=== PATIENT | female | born 1965 | race Two or more races ===

== ENCOUNTER 2019-05-09 12:08 | Inpatient (IN) | payer OTHER ==
[~2019-05-09] VITALS: Ht 154.9 cm; Wt 70.4 kg
[~2019-05-09 12:08] MED LIST: INTE0.3I2 SC; LEVO125T7 PO; OMEP20CA74 PO
[2019-05-09] MEDS ORDERED: SODIUM CHLORIDE 0.9% 1,000 ML IVB ONE (12:50)
[2019-05-09 13:33] LABS: Basophils # (auto) 0 uL; Basophils % (auto) 1.3 % (0.0-2.0); Eosinophils # (auto) 0.1 uL; Eosinophils % (auto) 1.4 % (0.0-7.0); Hematocrit 41.5 % (36.0-46.0); Hemoglobin 13.7 g/dL (12.2-16.2); Lymphocytes # (auto) 1.6 uL; Lymphocytes % (auto) 40.8 % (10.0-50.0); Mean Corpuscular Volume 84.7 fL (80.0-100.0); Monocytes # (auto) 0.4 uL; Monocytes % (auto) 10.4 % (0.0-12.0); Neutrophils # (auto) 1.8 uL; Neutrophils % (auto) 46.1 % (37.0-80.0); Nucleated Red Blood Cells % 0.2 %; Platelet Count (auto) 150 10^3/uL (140-450); Red Cell Distribution Width 12.7 % (11.8-14.3)
[2019-05-09 13:40] LABS: Urine WBC None Seen /hpf (0 - 5)
[2019-05-09 13:51] LABS: Albumin 4.1 g/dL (3.4-5.0); Calcium 9.2 mg/dL (8.5-10.1); Magnesium 2.4 mg/dL (1.6-2.6); Potassium 3.8 mmol/L (3.5-5.1)
[2019-05-09 13:54] LABS: Partial Thromboplastin Time 27.1 sec (23.64-32.05)
[2019-05-09 13:55] LABS: BUN/Creatinine Ratio 23.3; Bilirubin, Total 0.4 mg/dL (0.2-1.0)
[2019-05-09 13:58] LABS: Urine Bacteria NONE SEEN /hpf (None Seen); Urine Blood Negative /uL (Negative); Urine Mucus FEW (None Seen); Urine Specific Gravity 1.013 (1.001-1.035)
[2019-05-09] MEDS ORDERED: MORPHINE SULF INJ 2 MG/ML SYRINGE 1ML IV PRN (16:45)
[2019-05-09] MEDS ORDERED: TEMAZEPAM 15 MG CAP PO PRN (16:45)
[2019-05-09] MEDS ORDERED: ACETAMINOPHEN 500 MG TAB PO PRN (16:45)
[2019-05-09] MEDS ORDERED: DEXTROSE (50%) 50ML SYRG IV PRN (16:45)
[2019-05-09] MEDS ORDERED: NITROGLYCERIN 0.4 MG SL TAB SL PRN (16:45)
[2019-05-09] MEDS ORDERED: LACTULOSE 20Gm/30ML SOLN PO PRN (16:45)
[2019-05-09] MEDS ORDERED: PROMETHAZINE HCL 25 MG/ML 1ML IV PRN (16:45)
[2019-05-09] MEDS ORDERED: traMADol HCL 50 MG TAB PO PRN (16:45)
[2019-05-09] MEDS: SODIUM CHLORIDE 0.9% 1,000 ML IV SCH (16:57)
[2019-05-09] MEDS: ACCU-CHEK COMFORT CURVE STRIP VI SCH ×2 (16:57→22:00)
[2019-05-09 18:16] LABS: Alcohol, Urine < 3.0 mg/dL (0-5); Amphetamine Screen, Urine NEGATIVE (NEGATIVE); Barbiturate Scree,Urine NEGATIVE (NEGATIVE); Benzodiazephine Screen, Urine NEGATIVE (NEGATIVE); Cannabinoid Screen, Urine NEGATIVE (NEGATIVE); Cocaine Screen, Urine NEGATIVE (NEGATIVE); Opiate Scree,Urine NEGATIVE (NEGATIVE); Phencyclidine Screen, Urine NEGATIVE (NEGATIVE)
[2019-05-09 21:46] VITALS: BP 115/71
--- NOTE | 2019-05-09 21:50 | NUR ---
[facility] after SBAR received. Patient oriented to ANNI HOOPER RN primary RN, unit, room, bed, and unit policies regarding patient care and visiting hours. Patient now on continuous telemetry monitoring, tele box # [id number] and telemetry reading on arrival to unit is SINUS RYTHYM 60 BPM. Patient placed on BED SIDE OXYGEN, weighed by bedscale and encouraged to call if they need something. All questions and concerns addressed, patient verbalized understanding. Note: PT IS ALERT AND ORENTIED X4, RESTING IN BED WITH NO COMPLIANTS OF DISTRESS OR PAIN. PT COMPLAINS OF GENERALIZED WEAKNESS AND DIZZINES. INSTRUCTED PT TO CALL FOR HELP IF SHE NEEDS TO GO TO THE RESTROOM OR GETTING OUT OF BED, PT VERBALIZED UNDERSTANDING.BED PLACED IN LOWEST POSITION,BED ALARM TURNED ON AND CALL BARRERA WITHIN REACH.
[2019-05-09] MEDS: methylPREDNISolone SOD SUCC 125 MG/2 ML VL IV SCH (23:04)
[2019-05-09 23:37] VITALS: BP 115/71
[2019-05-10] MEDS ORDERED: ERGO1CAP23 PO (00:14)
[2019-05-10] MEDS ORDERED: PEGI15IN SC (00:14)
[2019-05-10 04:30] VITALS: BP 93/63
[2019-05-10] MEDS: methylPREDNISolone SOD SUCC 125 MG/2 ML VL IV SCH ×3 (06:05→21:47)
[2019-05-10] MEDS: SODIUM CHLORIDE 0.9% 1,000 ML IV SCH ×2 (06:06→17:36)
[2019-05-10] MEDS: ACCU-CHEK COMFORT CURVE STRIP VI SCH ×4 (06:26→22:00)
[2019-05-10] MEDS: LEVOTHYROXINE SODIUM 100 MCG TAB PO SCH (06:26)
--- NOTE | 2019-05-10 06:35 | NUR ---
ROUNDS PATIENT IS RESTING IN BED ALERT AND AWAKE, NO DISTRESS NOTED. GIVEN COFFEE PER PATIENT REQUEST. PATIENT STATES SHE IS ABLE TO LIFT HER FEET UP IN BED BY HERSELF. PATIENT HAPPY.
--- NOTE | 2019-05-10 07:30 | NUR ---
Opening Shift Note Assumed care of patient, awake and alert, lying on bed resting comfortably. No S/S of distress/SOB or pain. Pt still complaining of weakness on her lower extremities. Instructed on POC and to call for assist PRN, will continue to monitor for changes Q1hr and PRN.
[2019-05-10 09:00] VITALS: BP 132/74
[2019-05-10] MEDS: ASPirin 81 mg TAB PO SCH (09:45)
[2019-05-10] MEDS: ENOXAPARIN SOD 40 MG/0.4 ML SYRINGE SC SCH (09:45)
[2019-05-10] MEDS: PANTOPRAZOLE 40 MG TAB PO SCH (09:45)
[2019-05-10 13:00] VITALS: BP 106/65
[2019-05-10] MEDS ORDERED: LORazepam 2MG/ML-1ML VIAL IV ONE (15:15)
[2019-05-10 17:27] VITALS: BP 115/65
--- NOTE | 2019-05-10 19:10 | NUR ---
Opening Shift Note Received report from young Marin RN. Assumed care of patient, awake and alert. No S/S of distress/SOB or pain. Instructed on POC and to call for assist PRN, will continue to monitor for changes Q1hr and PRN. Bed placed in lowest position, and call light within reach.
[2019-05-10] MEDS ORDERED: LORazepam 2MG/ML-1ML VIAL IV PRN (20:00)
--- NOTE | 2019-05-10 20:00 | NUR ---
Dr Haines at bedside.
[2019-05-10 21:00] VITALS: BP 105/65
[2019-05-11 04:30] VITALS: BP 96/55
[2019-05-11] MEDS: SODIUM CHLORIDE 0.9% 1,000 ML IV SCH (05:28)
[2019-05-11] MEDS: ACCU-CHEK COMFORT CURVE STRIP VI SCH ×4 (06:54→22:00)
[2019-05-11] MEDS: LEVOTHYROXINE SODIUM 100 MCG TAB PO SCH (06:54)
[2019-05-11 09:00] VITALS: BP_SYST 113; BP_SYST 144; BP_DIAS 66; BP_DIAS 80
[2019-05-11] MEDS ORDERED: GADOPENTETATE DIMEGLUMINE (10MMOL/20 ML) VIAL IV ONE (09:32)
[2019-05-11] MEDS: methylPREDNISolone SOD SUCC 125 MG/2 ML VL IV SCH (11:42)
[2019-05-11] MEDS: ENOXAPARIN SOD 40 MG/0.4 ML SYRINGE SC SCH (11:43)
[2019-05-11] MEDS: ASPirin 81 mg TAB PO SCH (11:43)
[2019-05-11] MEDS: PANTOPRAZOLE 40 MG TAB PO SCH (11:43)
[2019-05-11 16:47] VITALS: BP 106/56
[2019-05-11 20:00] VITALS: BP 114/48
--- NOTE | 2019-05-11 20:00 | NUR ---
Opening Shift Note Assumed care of patient, awake and alert. No S/S of distress/SOB or pain. Instructed on POC and to call for assist PRN, will continue to monitor for changes Q1hr and PRN.
[2019-05-11 22:00] VITALS: BP 114/48
[2019-05-12] VITALS (7 sets, daily range): BP systolic 100–120; BP diastolic 60–71
[2019-05-12] MEDS: ACCU-CHEK COMFORT CURVE STRIP VI SCH ×4 (06:27→22:05)
[2019-05-12] MEDS: LEVOTHYROXINE SODIUM 100 MCG TAB PO SCH (06:29)
[2019-05-12] MEDS: ENOXAPARIN SOD 40 MG/0.4 ML SYRINGE SC SCH (12:04)
[2019-05-12] MEDS: PANTOPRAZOLE 40 MG TAB PO SCH (12:04)
[2019-05-12] MEDS: methylPREDNISolone SOD SUCC 125 MG/2 ML VL IV SCH (12:05)
--- NOTE | 2019-05-12 19:15 | NUR ---
OPENING NOTE- NOC SHIFT PATIENT IS A/O X4, NO S/SX OF DISTRESS OR SOB. PATIENT DENIES PAIN AT THIS TIME AND STATES THAT SHE IS FEELING MUCH BETTER AND THAT SHE CAN AMBULATE WITHOUT PAIN. FAMILY IS AT BEDSIDE. GOOD FAMILY DYNAMICS NOTED. WILL CONTINUE TO MONITOR Q1H AND PRN. INSTRUCTED PATIENT TO CALL PRN; PATIENT VERBALIZED UNDERSTANDING.
--- NOTE | 2019-05-12 19:35 | NUR ---
RADIO JOURNALIST AT BEDSIDE PER PATIENT REQUEST. FAMILY AT BEDSIDE.
[2019-05-13] VITALS (7 sets, daily range): BP systolic 110–122; BP diastolic 58–67
[2019-05-13] MEDS: ACCU-CHEK COMFORT CURVE STRIP VI SCH ×4 (06:39→22:34)
[2019-05-13] MEDS: LEVOTHYROXINE SODIUM 100 MCG TAB PO SCH (06:39)
--- NOTE | 2019-05-13 07:21 | NUR ---
CLOSING NOTE- NOC SHIFT ENDORSED PATIENT CARE TO DAY SHIFT RN. PATIENT RESTING IN BED, NO S/SX OF DISTRESS, SOB OR PAIN.
--- NOTE | 2019-05-13 07:45 | NUR ---
OPENING NOTE OBSERVED PT SITTING UP IN BED. NO SOB/DISTRESS NOTED. PT DENIES ANY PAIN AT THIS TIME. PT REQUESTING STOOL SOFTENER. WILL SPEAK TO MD FOR ORDERS. PT UPDATED ON POC AND PT VERBALIZED UNDERSTANDING. CALL LIGHT WITHIN REACH, FALL PRECAUTIONS IN REACH. WILL CONTINUE TO MONITOR Q1H AND PRN. CONTINUE PT CARE.
[2019-05-13] MEDS: PANTOPRAZOLE 40 MG TAB PO SCH (08:48)
[2019-05-13] MEDS: methylPREDNISolone SOD SUCC 125 MG/2 ML VL IV SCH (08:48)
[2019-05-13] MEDS: ENOXAPARIN SOD 40 MG/0.4 ML SYRINGE SC SCH (08:48)
--- NOTE | 2019-05-13 09:02 | NUR ---
SPOKE TO PT REQUESTING STOOL SOFTENER. SPOKE TO DR. ALLEN. ORDERS RECEIVED AND CARRIED OUT.
[2019-05-13] MEDS ORDERED: DOCUSATE SOD 100 MG CAP PO ONE (09:15)
[2019-05-13] MEDS: DOCUSATE SOD 100 MG CAP PO SCH ×2 (09:18→22:00)
--- NOTE | 2019-05-13 12:24 | NUR ---
NUTRITION ASSESSMENT NOTES Please refer to link notes of nutrition screen form filed under the intervention section of the plan of care for further details. Est. Needs: 1400 kcal to 1750 kcal (20-25 kcal/kgBW), 55 gms to 69 gms pro (0.8-1.0 gms/kgBW). Will continue to monitor pertinent labs and reassess nutrient need prn Thank you. Addendum: 05/13/19 at [address] Amended: Links added.
--- NOTE | 2019-05-13 13:10 | NUR ---
AMBULATION PATIENT AMBULATING IN HALLWAY WITH FWW. TOLERATING ACTIVITY WELL.
--- NOTE | 2019-05-13 18:45 | NUR ---
ROUNDS PT SITTING UP IN BED. CONTINUES TO DENY ANY PAIN OR DISTRESS. PT ENCOURAGED TO CONTACT STAFF FOR PRN ASSISTANCE. CALL LIGHT WITHIN REACH.
--- NOTE | 2019-05-13 19:45 | NUR ---
PATIENT IN SHOWER PROVIDED COMPLETE SUPPLIES FOR SHOWER. AT BEDSIDE.
[2019-05-14 04:42] VITALS: BP 103/54
[2019-05-14] MEDS: LEVOTHYROXINE SODIUM 100 MCG TAB PO SCH (07:09)
[2019-05-14] MEDS: ACCU-CHEK COMFORT CURVE STRIP VI SCH ×2 (07:09→12:27)
--- NOTE | 2019-05-14 07:20 | NUR ---
ENDORSED PATIENT CARE TO DAY SHIFT NURSE JOSE CORDOVA. PATIENT IS RESTING IN BED. NO S/SX OF DISTRESS, SOB OR PAIN.
--- NOTE | 2019-05-14 07:30 | NUR ---
Opening Shift Note Received report and assumed care of patient, awake, alert and oriented. No S/S of distress/SOB or pain. Instructed on POC and nursing routines,call light within reach,patient reminded instructed to call for assistance.will continue to monitor for changes Q1hr and PRN.
[2019-05-14 09:00] VITALS: BP 112/66
[2019-05-14] MEDS: PANTOPRAZOLE 40 MG TAB PO SCH (10:15)
[2019-05-14] MEDS: methylPREDNISolone SOD SUCC 125 MG/2 ML VL IV SCH (10:15)
[2019-05-14] MEDS: ENOXAPARIN SOD 40 MG/0.4 ML SYRINGE SC SCH (10:16)
[2019-05-14] MEDS: DOCUSATE SOD 100 MG CAP PO SCH (10:16)
[2019-05-14 13:00] VITALS: BP 107/68
[2019-05-14 13:43] VITALS: BP 107/68
--- NOTE | 2019-05-14 14:30 | NUR ---
Discharge instructions given in Estonian as per patient request. Signed: 05/14/19 at 1444 by JENNIFER MCLEAN <Co-Signature Required> Co-Signed: 05/14/19 at 1444 by Valentine Alicea RN RN
--- NOTE | 2019-05-14 14:35 | NUR ---
Discharge instructions given as ordered. Encourage to follow up with PMD as instructed. All questions and concerns addressed. Patient verbalized understanding. Medication reconciliation form completed and copy given to patient. IV removed with catheter intact, pressure dressing applied. Patient taken to vehicle via wheelchair with all personal belongings, accompanied by staff and . No distress noted at time of departure. Signed: 05/14/19 at 1443 by JENNIFER MCLEAN <Co-Signature Required> Co-Signed: 05/14/19 at 1443 by Valentine Alicea RN RN
== END 2019-05-14 14:35 | disposition home or self-care (01) | DRG 60 ==
LOC: ER 12:11 → TELE 12:12 → TELE-WESTW 21:50 → WEST WING 05-10 14:57
PROVIDERS: ADMIT Internal Medicine; ATTEND Internal Medicine
DX: G35 Multiple sclerosis (principal); E03.9 Hypothyroidism, unspecified; F17.210 Nicotine dependence, cigarettes, uncomplicated; K21.9 Gastro-esophageal reflux disease without esophagitis; T38.0X5A Adverse effect of glucocorticoids and synthetic analogues, initial encounter; R73.9 Hyperglycemia, unspecified; Z79.82 Long term (current) use of aspirin; Z79.899 Other long term (current) drug therapy; Z82.49 Family history of ischemic heart disease and other diseases of the circulatory system; Z90.49 Acquired absence of other specified parts of digestive tract; Z88.2 Allergy status to sulfonamides
CPT/HCPCS: 36415; 70450; 70553; 71045; 72142; 80053; 80307; 81001; 82962; 83036; 83735; 84443; 85025; 85610; 85652; 85730; 93005; 94761; 96361; 96374; 97116; 97530; G0378

== ENCOUNTER 2021-05-13 20:30 | Inpatient (IN) | payer OTHER ==
[~2021-05-13] VITALS: Ht 154.9 cm; Wt 70.0 kg
[~2021-05-13 20:30] MED LIST changes: +ERGO1CAP23 PO; +PEGI15IN SC
[2021-05-14 00:10] LABS: Basophils # (auto) 0 10 ^3/uL (0-0.2); Basophils % (auto) 0.4 % (0.0-2.0); Eosinophils # (auto) 0.2 10 ^3/uL (0-0.8); Eosinophils % (auto) 2.9 % (0.0-7.0); Hematocrit 39.7 % (36.0-46.0); Hemoglobin 13.1 g/dL (12.2-16.2); Lymphocytes # (auto) 2.9 10 ^3/uL (0.4-5.4); Lymphocytes % (auto) 45.9 % (10.0-50.0); Mean Corpuscular Hemoglobin 27.5 pg (28.0-32.0); Mean Corpuscular Volume 83.4 fL (80.0-100.0); Monocytes # (auto) 0.5 10 ^3/uL (0-1.3); Neutrophils # (auto) 2.7 10 ^3/uL (1.6-8.6); Neutrophils % (auto) 42.8 % (37.0-80.0); Nucleated Red Blood Cells % 0.1 %; Red Blood Cells 4.76 10^6/uL (4.0-5.20); Red Cell Distribution Width 12.8 % (11.8-14.3); White Blood Cell 6.2 10^3/uL (4.4-10.8)
[2021-05-14 00:38] LABS: Albumin 3.5 g/dL (3.4-5.0); BUN/Creatinine Ratio 22.6; Calcium 9.2 mg/dL (8.5-10.1); Magnesium 2.3 mg/dL (1.6-2.6); Potassium 3.8 mmol/L (3.5-5.1)
[2021-05-14 00:41] LABS: Bilirubin, Total 0.4 mg/dL (0.2-1.0); Total Protein 7.5 g/dL (6.4-8.2)
[2021-05-14 07:03] LABS: Urine Bacteria NONE SEEN /hpf (None Seen); Urine Blood Negative /uL (Negative); Urine WBC 2 /hpf (0 - 5)
[2021-05-14] MEDS ORDERED: ACETAMINOPHEN 500 MG TAB PO PRN (10:30)
[2021-05-14] MEDS ORDERED: ONDANSETRON HCL 4 MG/2 ML VIAL IV PRN (10:30)
[2021-05-14] MEDS ORDERED: cefTRIAXone 1GM/50ML D5W 50 ML IV ONE (10:30)
[2021-05-14] MEDS ORDERED: DEXTROSE (50%) 50ML SYRG IV PRN (10:30)
[2021-05-14] MEDS ORDERED: NITROGLYCERIN 0.4 MG SL TAB SL PRN (10:30)
[2021-05-14] MEDS ORDERED: MORPHINE SULFATE INJECTION 2 MG/ML SYRG IV PRN ×3 (10:30)
[2021-05-14] MEDS: SODIUM CHLORIDE 0.9% 1,000 ML IV SCH ×2 (11:19→21:30)
[2021-05-14] MEDS ORDERED: PLEGRIDY SC ONE (16:00)
[2021-05-14] MEDS ORDERED: GADOTERATE MEG 10 MMOL/20ml INJ (0.5MMOL/ml) IV ONE (16:21)
[2021-05-14] MEDS ORDERED: [UNRECOGNIZED DRUG - OTHER] SC SCH ×2 (16:45→17:00)
[2021-05-15 05:40] LABS: Potassium 4.3 mmol/L (3.5-5.1)
[2021-05-15 05:46] LABS: Albumin 3.3 g/dL (3.4-5.0); BUN/Creatinine Ratio 30.6; Bilirubin, Total 0.6 mg/dL (0.2-1.0); Total Protein 7.5 g/dL (6.4-8.2)
[2021-05-15] MEDS: SODIUM CHLORIDE 0.9% 1,000 ML IV SCH ×2 (06:30→18:00)
[2021-05-15] MEDS ORDERED: cefTRIAXone 1GM/50ML D5W 50 ML IV SCH (09:00)
[2021-05-15] MEDS ORDERED: ENOXAPARIN SOD 40 MG/0.4 ML SYRINGE SC SCH (10:00)
[2021-05-15] MEDS: PANTOPRAZOLE 40 MG TAB PO SCH (10:00)
[2021-05-15] MEDS: methylPREDNISolone SOD SUCC 1,000 MG in SODIUM CHL 0.9% 250 ML IV SCH (10:42)
[2021-05-15] MEDS ORDERED: ASPI-231 PO (11:07)
[2021-05-15] MEDS: cefTRIAXone 1GM/50ML D5W 50 ML IV SCH (11:37)
[2021-05-15] MEDS: ENOXAPARIN SOD 40 MG/0.4 ML SYRINGE SC SCH (11:37)
[2021-05-15 17:24] VITALS: BP 126/75
[2021-05-15 17:25] VITALS: BP 126/75
[2021-05-15 22:00] VITALS: BP 124/67
[2021-05-16] MEDS: SODIUM CHLORIDE 0.9% 1,000 ML IV SCH ×3 (00:13→22:30)
[2021-05-16 05:19] VITALS: BP 123/64
[2021-05-16 08:38] VITALS: BP 123/72
[2021-05-16] MEDS: cefTRIAXone 1GM/50ML D5W 50 ML IV SCH (09:19)
[2021-05-16] MEDS: PANTOPRAZOLE 40 MG TAB PO SCH (09:19)
[2021-05-16] MEDS: ENOXAPARIN SOD 40 MG/0.4 ML SYRINGE SC SCH (09:20)
[2021-05-16] MEDS: methylPREDNISolone SOD SUCC 1,000 MG in SODIUM CHL 0.9% 250 ML IV SCH (10:07)
[2021-05-16] MEDS ORDERED: LEVOTHYROXINE SODIUM 50 MCG TAB PO ONE (12:15)
[2021-05-16 12:59] VITALS: BP 119/69
[2021-05-16 17:00] VITALS: BP 109/51
[2021-05-16 22:00] VITALS: BP 114/57
[2021-05-17 05:00] VITALS: BP 120/58
[2021-05-17] MEDS: LEVOTHYROXINE SODIUM 50 MCG TAB PO SCH (05:47)
[2021-05-17 09:00] VITALS: BP 128/64
[2021-05-17] MEDS: ENOXAPARIN SOD 40 MG/0.4 ML SYRINGE SC SCH (10:03)
[2021-05-17] MEDS: cefTRIAXone 1GM/50ML D5W 50 ML IV SCH (10:03)
[2021-05-17] MEDS: PANTOPRAZOLE 40 MG TAB PO SCH (10:03)
[2021-05-17] MEDS: SODIUM CHLORIDE 0.9% 1,000 ML IV SCH ×2 (10:04→18:30)
[2021-05-17] MEDS: methylPREDNISolone SOD SUCC 1,000 MG in SODIUM CHL 0.9% 250 ML IV SCH (11:20)
[2021-05-17 13:00] VITALS: BP 103/67
[2021-05-17 17:00] VITALS: BP 119/62
[2021-05-17 22:00] VITALS: BP 106/54
[2021-05-18] MEDS: SODIUM CHLORIDE 0.9% 1,000 ML IV SCH ×3 (04:46→23:22)
[2021-05-18 05:00] VITALS: BP 129/64
[2021-05-18] MEDS: LEVOTHYROXINE SODIUM 50 MCG TAB PO SCH (05:31)
[2021-05-18 09:00] VITALS: BP 129/79
[2021-05-18] MEDS: ENOXAPARIN SOD 40 MG/0.4 ML SYRINGE SC SCH (09:53)
[2021-05-18] MEDS: PANTOPRAZOLE 40 MG TAB PO SCH (09:53)
[2021-05-18] MEDS: cefTRIAXone 1GM/50ML D5W 50 ML IV SCH (09:53)
[2021-05-18] MEDS: methylPREDNISolone SOD SUCC 1,000 MG in SODIUM CHL 0.9% 250 ML IV SCH (10:48)
[2021-05-18 12:50] VITALS: BP 122/68
[2021-05-18 16:22] VITALS: BP 133/53
[2021-05-18 22:00] VITALS: BP 92/51
[2021-05-19 05:00] VITALS: BP 121/59
[2021-05-19] MEDS: LEVOTHYROXINE SODIUM 50 MCG TAB PO SCH (06:34)
[2021-05-19 08:52] VITALS: BP 108/64
[2021-05-19] MEDS: PANTOPRAZOLE 40 MG TAB PO SCH (09:03)
[2021-05-19] MEDS: ENOXAPARIN SOD 40 MG/0.4 ML SYRINGE SC SCH (09:03)
[2021-05-19] MEDS: cefTRIAXone 1GM/50ML D5W 50 ML IV SCH (09:03)
[2021-05-19] MEDS: methylPREDNISolone SOD SUCC 1,000 MG in SODIUM CHL 0.9% 250 ML IV SCH (10:20)
== END 2021-05-19 12:45 | disposition home or self-care (01) | DRG 59 ==
LOC: ER 20:30 → TELE 05-14 10:24 → WEST WING 05-15 16:25 → TELE-WESTW 05-15 16:54 → WEST WING 05-15 20:29
PROVIDERS: ADMIT Internal Medicine; ATTEND Family Medicine
DX: G35 Multiple sclerosis (principal); N39.0 Urinary tract infection, site not specified; Z20.822 Contact with and (suspected) exposure to COVID-19; K21.9 Gastro-esophageal reflux disease without esophagitis; Z79.899 Other long term (current) drug therapy; Z82.49 Family history of ischemic heart disease and other diseases of the circulatory system; Z87.891 Personal history of nicotine dependence; Z88.2 Allergy status to sulfonamides
CPT/HCPCS: 36415; 70450; 70551; 70553; 71045; 72141; 72142; 72157; 76705; 80053; 81001; 82550; 83036; 83735; 84443; 85025; 87086; 87426; 93005; 96365; 96366; 96372; G0378; J0696